=== PATIENT | female | born 1990 | race Caucasian/White ===

== ENCOUNTER 2019-01-27 15:59 | Emergency (ER) | payer MEDICAID ==
[~2019-01-27] VITALS: Ht 170.2 cm; Wt 70.3 kg
[2019-01-27 16:00] VITALS: BP_SYST 138
--- NOTE | 2019-01-27 16:04 | NUR ---
Patient to ER bed 01 to gown for evaluation. Side rails up.
--- NOTE | 2019-01-27 16:07 | NUR ---
Patient arrived via POV, AAOx4, ambulatory with steady gait. Patient arrived with c/c of left thumb injury. Patient states she is in [employer] school and punctured her thumb with a cuticle tool. She states the tool was clean but not sterilized. Her last tetanus shot was within the past 3 weeks. Patient calm and cooperative, self applied pressure bandage removed, no active bleeding at this time. Pucture site is less than 1cm. Tenderness noted to distal portion of thumb. Will continue to follow up.
--- NOTE | 2019-01-27 16:11 | NUR ---
DR BARBOSA AT BEDSIDE FOR EVALUATION
--- NOTE | 2019-01-27 17:10 | NUR ---
XRAYS BEING DONE AT BEDSIDE.
[2019-01-27] MEDS ORDERED: BACITRACIN 1 GM OINT TP ONE (17:30)
[2019-01-27 17:55] VITALS: BP_SYST 132
--- NOTE | 2019-01-27 17:55 | NUR ---
Patient given written and verbal discharge instructions and verbalizes understanding. ER MD discussed with patient the results and treatment provided. Patient in stable condition. ID arm band requested to keep. Rx of Augmentin given. Patient educated on pain management and to follow up with PMD. Pain Scale 0/10. Opportunity for questions provided and answered. Medication side effect fact sheet provided.
== END 2019-01-27 17:55 | disposition home or self-care (01) ==
LOC: SED 15:59
DX: S61.032A Puncture wound without foreign body of left thumb without damage to nail, initial encounter (principal); W26.8XXA Contact with other sharp object(s), not elsewhere classified, initial encounter; Y93.89 Activity, other specified; Y92.89 Other specified places as the place of occurrence of the external cause; Y99.8 Other external cause status
CPT/HCPCS: 73140-TC; 99283